=== PATIENT | male | born 2000 | race Two or more races ===

== ENCOUNTER 2021-08-12 20:16 | Emergency (ER) | payer OTHER ==
[~2021-08-12] VITALS: Ht 172.7 cm; Wt 65.0 kg
[2021-08-12 21:06] LABS: BASOPHILS % (AUTO) 0.2 % (0-1); EOSINOPHILS # (AUTO) 0.3 X10'3 (0-0.9); EOSINOPHILS % (AUTO) 2.2 % (0-6); HEMATOCRIT 43.2 % (42.0-52.0); HEMOGLOBIN 15.3 g/dl (14.0-17.9); LYMPHOCYTES # (AUTO) 0.8 X10'3 (1.1-4.8); LYMPHOCYTES % (AUTO) 7.4 % (21-51); MEAN CORPUSCULAR HEMOGLOBIN 30.7 PG (27.0-31.0); MEAN CORPUSCULAR HGB CONC 35.4 g/dL (33.0-36.5); MEAN CORPUSCULAR VOLUME 86.8 FL (78-98); MEAN PLATELET VOLUME 8.2 FL (7.4-10.4); MONOCYTES % (AUTO) 8.4 % (2-12); NEUTROPHILS # (AUTO) 9.3 X10'3 (1.8-7.7); NEUTROPHILS % (AUTO) 81.8 % (42-75); PLATELET COUNT 208 X10'3 (140-440); RED BLOOD COUNT 4.98 X10'6 (4.70-6.10); RED CELL DISTRIBUTION WIDTH 12.9 % (11.5-14.5); WHITE BLOOD COUNT 11.4 X10'3 (4.5-11.0)
[2021-08-12 21:16] LABS: ALANINE AMINOTRANSFERASE 6 U/L (12-78); ALBUMIN 4.1 G/DL (3.4-5.0); ALBUMIN/GLOBULIN RATIO 1.2 (1.1-1.5); ALKALINE PHOSPHATASE 112 IU/L (20-180); ANION GAP 8 (8-16); ASPARTATE AMINO TRANSFERASE 18 U/L (10-37); BILIRUBIN,TOTAL 0.6 MG/DL (0.1-1.0); BLOOD UREA NITROGEN 8 MG/DL (7-18); BUN/CREATININE RATIO 8.3 (5.4-32.0); CALCIUM 8.6 MG/DL (8.5-10.1); CHLORIDE 103 MMOL/L (99-107); CREATININE 0.96 MG/DL (0.60-1.10); GLUCOSE 137 MG/DL (70-104); POTASSIUM 3.4 MMOL/L (3.5-5.1); SODIUM 138 MMOL/L (135-145); TOTAL CARBON DIOXIDE 26.8 MMOL/L (24-32); TOTAL PROTEIN 7.6 G/DL (6.4-8.2); eGFR > 90 ML/MIN
[2021-08-12 21:25] LABS: ETHANOL < 0.010 GM/DL (0.0-0.010)
[2021-08-12] MEDS ORDERED: acetaminophen 325mg tablet PO ONE (21:35)
[2021-08-12 21:40] LABS: CLARITY,URINE CLEAR (Clear); COLOR,URINE YELLOW (Yellow); GLUCOSE, URINE NEGATIVE (Neg); KETONES,URINE NEGATIVE (Neg); LEUKOCYTE ESTERASE ,URINE NEGATIVE (Neg); NITRITES, URINE NEGATIVE (Neg); OCCULT BLOOD,URINE NEGATIVE (Neg); PH,URINE 7.5 (4.8-8.0); PROTEIN,URINE NEGATIVE (Neg); UROBILINOGEN,URINE 0.2 E.U/dL (0.2-1.0)
[2021-08-12 21:57] LABS: UA COLLECTION TYPE CLN CATCH MIDSTREAM; URINE AMPHETAMINE SCREEN NEGATIVE (Neg); URINE BARBITUATE SCREEN NEGATIVE (Neg); URINE BENZODIAZEPINES SCREEN NEGATIVE (Neg); URINE CANNABINOID SCREEN POSITIVE (Neg); URINE COCAINE SCREEN NEGATIVE (Neg); URINE METHADONE SCREEN NEGATIVE (Neg); URINE OPIATE SCREEN NEGATIVE (Neg); URINE PHENCYCLIDINE SCREEN NEGATIVE (Neg)
[2021-08-12 22:12] VITALS: BP 142/64
--- NOTE | 2021-08-12 22:15 | NUR ---
influenza A&B CANCELLED BY QUINCY ANGEL
== END 2021-08-12 22:16 | disposition home or self-care (01) ==
LOC: ER 20:19
DX: B34.9 Viral infection, unspecified (principal); R07.89 Other chest pain; R05.9 Cough, unspecified; R09.89 Other specified symptoms and signs involving the circulatory and respiratory systems; F12.90 Cannabis use, unspecified, uncomplicated; Z72.89 Other problems related to lifestyle; Z56.0 Unemployment, unspecified
CPT/HCPCS: 36415; 80053; 80305; 80320; 81003; 84443; 85025; 93005; 99284

== ENCOUNTER 2023-04-03 21:45 | Emergency (ER) | payer MEDICAID ==
[~2023-04-03] VITALS: Ht 172.7 cm; Wt 71.8 kg
[2023-04-03 21:53] VITALS: BP 118/64; PULSE 87; RESP 18; TEMP 98.2; O2SAT 98
--- NOTE | 2023-04-03 22:20 | NUR ---
relieving RN for break, pt was exposed to poison oak, has spread "everywhere", waiting to be evaluated
[2023-04-03] MEDS ORDERED: DIPH25CA83 PO (22:55)
[2023-04-03] MEDS ORDERED: TRIA15CR61 TOP (22:55)
== END 2023-04-03 23:10 | disposition home or self-care (01) ==
LOC: ER 21:46
DX: L23.9 Allergic contact dermatitis, unspecified cause (principal); F12.90 Cannabis use, unspecified, uncomplicated; Z59.00 Homelessness unspecified; Z72.89 Other problems related to lifestyle
CPT/HCPCS: 99283

== ENCOUNTER 2023-11-07 16:17 | Emergency (ER) | payer SELFPAY ==
[~2023-11-07] VITALS: Ht 172.7 cm; Wt 78.1 kg
[~2023-11-07 16:17] MED LIST: DIPH25CA83 PO
[2023-11-07 16:20] VITALS: BP 132/71; PULSE 83; RESP 16; O2SAT 99
[2023-11-07 17:04] VITALS: TEMP 98.6
== END 2023-11-07 17:07 | disposition home or self-care (01) ==
LOC: ER 16:18
DX: S02.2XXA Fracture of nasal bones, initial encounter for closed fracture (principal); F12.90 Cannabis use, unspecified, uncomplicated; Z79.899 Other long term (current) drug therapy; Z56.0 Unemployment, unspecified; Z72.89 Other problems related to lifestyle; Z88.0 Allergy status to penicillin; V89.2XXA Person injured in unspecified motor-vehicle accident, traffic, initial encounter; Y93.89 Activity, other specified; Y92.89 Other specified places as the place of occurrence of the external cause; Y99.8 Other external cause status
CPT/HCPCS: 99281

== ENCOUNTER 2024-02-04 20:46 | Emergency (ER) | payer MEDICAID ==
[~2024-02-04] VITALS: Ht 172.7 cm; Wt 80.8 kg
[2024-02-04] MEDS ORDERED: DIPH35CR TOP (21:25)
[2024-02-04] MEDS ORDERED: FAMO-129 PO (21:25)
[2024-02-04] MEDS: famotidine 20mg tablet PO ONE (21:32)
[2024-02-04] MEDS: dexamethasone sod phosphate 10mg/ml inj PO STA (21:32)
[2024-02-04] MEDS: diphenhydrAMINE 50 mg/ml inj IM ONE (21:33)
[2024-02-04] MEDS: ketorolac trometh. 30mg/ml inj. IM ONE (21:33)
[2024-02-04 21:42] VITALS: BP 112/64; PULSE 64; RESP 16; TEMP 98; O2SAT 99
== END 2024-02-04 21:44 | disposition home or self-care (01) ==
LOC: ER 20:47
DX: T63.461A Toxic effect of venom of wasps, accidental (unintentional), initial encounter (principal); M79.642 Pain in left hand; F12.90 Cannabis use, unspecified, uncomplicated; Z79.899 Other long term (current) drug therapy; Z72.89 Other problems related to lifestyle; Z56.0 Unemployment, unspecified; Y92.89 Other specified places as the place of occurrence of the external cause
CPT/HCPCS: 96372; 99284; J1100; J1200; J1885